=== PATIENT | male | born 1950 | race Asian ===

== ENCOUNTER 2024-06-10 22:53 | Emergency (ER) | payer MEDICAID ==
[~2024-06-10] VITALS: Ht 165.1 cm; Wt 59.1 kg
[2024-06-10 23:00] VITALS: TEMP 97.7
[2024-06-10] MEDS: CIPROFLOXACIN HCL 250 MG TABLET PO ONE (23:30)
[2024-06-10] MEDS: DIPHENOXYLATE/ATROP 2.5-0.025 MG TABLET PO ONE (23:30)
[2024-06-10] MEDS: SODIUM CHLORIDE 0.9% 500 ML IV ONE (23:31)
[2024-06-10 23:49] LABS: BASOPHILS % (AUTO) 0.3 % (0.0-2.0); EOSINOPHILS % (AUTO) 1.1 % (1.0-6.0); HEMATOCRIT 43.1 % (41-53); HEMOGLOBIN 14.3 g/dL (13.5-17.5); LYMPHOCYTES % (AUTO) 19.8 % (22.0-44.0); MEAN CORPUSCULAR HEMOGLOBIN 30.2 pg (26.0-34.0); MEAN CORPUSCULAR HGB CONC 33.2 G/dL (31.0-37.0); MEAN CORPUSCULAR VOLUME 91 fL (80-100); MONOCYTES # (AUTO) 0.5 K/uL (0.1-1.0); MONOCYTES % (AUTO) 5.5 % (2.0-9.0); NEUTROPHILS # (AUTO) 7.3 K/uL (1.8-7.7); NEUTROPHILS % (AUTO) 73.3 % (40.0-70.0); PLATELET COUNT (AUTO) 432 K/uL (150-450); RED BLOOD CELL COUNT(AUTO) 4.74 MIL/uL (4.50-5.90); RED CELL DISTRIBUTION WIDTH 13.4 % (11.5-14.5); WHITE BLOOD COUNT (AUTO) 9.9 K/uL (4.5-11.0)
[2024-06-10 23:50] LABS: ANION GAP 8 mmol/L (8-16); CALCIUM, TOTAL 8.6 mg/dL (8.8-10.5); CARBON DIOXIDE 29 mmol/L (22-29); CHLORIDE 96 mmol/L (98-107); CREATININE 0.96 mg/dL (0.60-1.30); GLOMERULAR FILTR. RATE CALC > 60 mL/min (>60); GLUCOSE,RANDOM 136 mg/dL (70-110); POTASSIUM 3.6 mmol/L (3.5-5.1); SODIUM SERUM 133 mmol/L (136-145); UREA NITROGEN, BLOOD 11 mg/dL (7-18)
[2024-06-10 23:51] LABS: LIPASE 49 U/L (16-77)
[2024-06-11 00:14] VITALS: BP 135/77; PULSE 77; RESP 15; O2SAT 100
== END 2024-06-11 00:16 | disposition home or self-care (01) ==
LOC: EMS 22:55
DX: R19.7 Diarrhea, unspecified (principal); F17.210 Nicotine dependence, cigarettes, uncomplicated
CPT/HCPCS: 99283; 96360; 80048; 83690; 85025; 36415; J7040